=== PATIENT | male | born 1940 | race Caucasian/White ===

== ENCOUNTER 2020-01-11 16:31 | Inpatient (IN) | payer MEDICARE, MEDICAID ==
[~2020-01-11] VITALS: Ht 157.5 cm; Wt 64.3 kg
[2020-01-11] MEDS ORDERED: CIPR-140 PO (16:39)
[2020-01-11] MEDS ORDERED: ACETAMINOPHEN 500 MG TABLET PO ONE (18:30)
[2020-01-11 18:32] LABS: BASOPHILS % (AUTO) 1.3 % (0.0-2.0); EOSINOPHILS % (AUTO) 0.1 % (1.0-6.0); HEMATOCRIT 39.4 % (41-53); HEMOGLOBIN 13.3 g/dL (13.5-17.5); LYMPHOCYTES # (AUTO) 1.5 K/uL (1.0-4.8); LYMPHOCYTES % (AUTO) 28.4 % (22.0-44.0); MEAN CORPUSCULAR HEMOGLOBIN 32.3 pg (26.0-34.0); MEAN CORPUSCULAR HGB CONC 33.8 G/dL (31.0-37.0); MEAN CORPUSCULAR VOLUME 96 fL (80-100); MONOCYTES # (AUTO) 0.6 K/uL (0.1-1.0); MONOCYTES % (AUTO) 12.2 % (2.0-9.0); PLATELET COUNT (AUTO) 132 K/uL (150-450); RED BLOOD CELL COUNT(AUTO) 4.12 MIL/uL (4.50-5.90); RED CELL DISTRIBUTION WIDTH 14.8 % (11.5-14.5)
[2020-01-11] MEDS ORDERED: SODIUM CHLORIDE 0.9% 500 ML IV ONE ×2 (18:45→21:15)
[2020-01-11 18:53] LABS: CALCIUM, TOTAL 8.5 mg/dL (8.8-10.5); CREATININE 2.8 mg/dL (0.60-1.30)
[2020-01-11 18:58] LABS: ALBUMIN 3.6 g/dL (3.4-5.0); BILIRUBIN,TOTAL 0.6 mg/dL (0.1-1.0); TOTAL PROTEIN, SERUM 7.8 g/dL (6.4-8.2)
[2020-01-11 19:52] LABS: APPEARANCE,URINE CLEAR (CLEAR); BILIRUBIN,URINE NEGATIVE (NEGATIVE); GLUCOSE, URINE (UA) 100 mg/dL (NEGATIVE); KETONES,URINE NEGATIVE (NEGATIVE); LEUKOCYTE ESTERASE ,URINE NEGATIVE (NEGATIVE); NITRATE,URINE NEGATIVE (NEGATIVE); OCCULT BLOOD,URINE TRACE (NEGATIVE); PH,URINE 5.5 (5.0-8.0); PROTEIN,URINE SEE CONFIRM (NEGATIVE); UROBILINOGEN,URINE 0.2 mg/dL (<=1.0)
[2020-01-11 20:26] LABS: SULFOSALICYLIC ACID,URINE 3+ (Negative)
[2020-01-11 20:27] LABS: BACTERIA,URINE None Seen /HPF (None Seen); RBC,URINE 0-2 /HPF (0-2); WBC,URINE 0-2 /HPF (0-5)
[2020-01-11 20:28] LABS: SQUAMOUS EPITHELIAL CELL,UR Few /LPF (None Seen)
[2020-01-12] MEDS ORDERED: ZOLPIDEM TARTRATE 5 MG TABLET PO PRN
[2020-01-12] MEDS ORDERED: HYDROCODONE/ACETAMINOPHEN 5-325 MG TABLET PO PRN
[2020-01-12] MEDS ORDERED: ONDANSETRON HCL 4 MG/2 ML VIAL IVP PRN
[2020-01-12] MEDS ORDERED: ALBUTEROL SULFATE 2.5 MG/0.5 ML NEB SOLUTION NEB PRN
[2020-01-12] MEDS ORDERED: MORPHINE SULFATE 2 MG/ML SYRINGE IVP PRN
[2020-01-12] MEDS ORDERED: IPRATROPIUM BROMIDE 0.5 MG/2.5 ML NEB SOLUTION NEB PRN
[2020-01-12] MEDS ORDERED: BISACODYL 10 MG RECTAL RECTAL SUPPOSITORY PR PRN
[2020-01-12 00:56] LABS: INFLUENZA TYPE A NEGATIVE FOR TYPE A (NEGATIVE); INFLUENZA TYPE B NEGATIVE FOR TYPE B (NEGATIVE)
[2020-01-12] MEDS ORDERED: AZITHROMYCIN 500 MG/NS 250 ML IV ONE (01:00)
[2020-01-12] MEDS ORDERED: CefTRIAXone 1 GM/DEXTROSE 50 ML IV ONE (01:00)
[2020-01-12 01:26] LABS: C-REACTIVE PROTEIN QUANT 4.83 mg/dL (0.00-0.30)
[2020-01-12 02:43] VITALS: BP 131/89
[2020-01-12] MEDS: MAGNESIUM HYDROXIDE SUSPENSION 30 ML UDCUP PO PRN ×2 (02:59→20:19)
[2020-01-12 06:23] VITALS: BP 128/73
[2020-01-12] MEDS ORDERED: PNEUMOCOCCAL VACCINE POLYVALENT 0.5 ML VIAL [PPSV23] IM ONE (07:45)
[2020-01-12] MEDS: DOCUSATE SODIUM 100 MG CAPSULE PO SCH ×2 (09:28→20:19)
[2020-01-12] MEDS: HEPARIN SODIUM,PORCINE 5,000 UNITS/ML VIAL SQ SCH ×4 (09:28→23:38)
[2020-01-12 12:00] VITALS: BP 116/70
[2020-01-12] MEDS: SODIUM BICARBONATE 650 MG TABLET PO SCH (12:57)
[2020-01-12] MEDS: SODIUM CHLORIDE 0.9% 1,000 ML IV SCH (12:58)
[2020-01-12 16:00] VITALS: BP 119/72
[2020-01-12 20:00] VITALS: BP 109/69
[2020-01-12] MEDS: ACETAMINOPHEN 325 MG TABLET PO PRN (20:19)
[2020-01-12] MEDS: TAMSULOSIN HCL 0.4 MG CAPSULE PO SCH (20:19)
[2020-01-13] VITALS: BP 104/61
[2020-01-13] MEDS ORDERED: CefTRIAXone 1 GM/DEXTROSE 50 ML IV SCH (01:00)
[2020-01-13] MEDS: ACETAMINOPHEN 325 MG TABLET PO PRN ×2 (01:08→14:37)
[2020-01-13 05:02] VITALS: BP 95/68
[2020-01-13] MEDS: SODIUM CHLORIDE 0.9% 1,000 ML IV SCH (05:22)
[2020-01-13 07:42] LABS: CALCIUM, TOTAL 7.7 mg/dL (8.8-10.5); CREATININE 2.42 mg/dL (0.60-1.30); POTASSIUM 4.1 mmol/L (3.5-5.1)
[2020-01-13 08:00] VITALS: BP 115/68
[2020-01-13] MEDS: HEPARIN SODIUM,PORCINE 5,000 UNITS/ML VIAL SQ SCH ×2 (08:51→16:01)
[2020-01-13] MEDS: DOCUSATE SODIUM 100 MG CAPSULE PO SCH (08:51)
[2020-01-13] MEDS: SODIUM BICARBONATE 650 MG TABLET PO SCH (08:51)
[2020-01-13] MEDS ORDERED: ALBUTEROL SULFATE/IPRATROPIUM 100-20 MCG/SPRAY 4 GM INHALER IH PRN (11:00)
[2020-01-13] MEDS ORDERED: DOCUSATE SODIUM 100 MG CAPSULE PO PRN (11:00)
[2020-01-13 12:00] VITALS: BP 113/60
[2020-01-13] MEDS ORDERED: DOXYCYCLINE HYCLATE 100 MG in DEXTROSE 5%-WATER 100 ML IV SCH (12:00)
[2020-01-13] MEDS ORDERED: HYDROXYCHLOROQUINE SULFATE 200 MG TABLET PO ONE ×2 (13:00→23:00)
[2020-01-13] MEDS ORDERED: AZITHROMYCIN 500 MG TABLET PO ONE (13:00)
[2020-01-13 13:05] LABS: ALBUMIN 3.1 g/dL (3.4-5.0); BILIRUBIN,TOTAL 0.5 mg/dL (0.1-1.0); CALCIUM, TOTAL 8.1 mg/dL (8.8-10.5); CREATININE 2.25 mg/dL (0.60-1.30); POTASSIUM 4.4 mmol/L (3.5-5.1); TOTAL PROTEIN, SERUM 7.3 g/dL (6.4-8.2)
[2020-01-13] MEDS: ALBUTEROL SULFATE/IPRATROPIUM 100-20 MCG/SPRAY 4 GM INHALER IH SCH ×2 (14:38→16:01)
[2020-01-13 16:00] VITALS: BP 105/69
[2020-01-13 20:00] VITALS: BP 133/70
[2020-01-13] MEDS: TAMSULOSIN HCL 0.4 MG CAPSULE PO SCH (21:36)
[2020-01-13] MEDS: ZINC GLUCONATE 50 MG TABLET PO SCH (21:37)
[2020-01-14] MEDS: HEPARIN SODIUM,PORCINE 5,000 UNITS/ML VIAL SQ SCH ×3 (00:11→15:31)
[2020-01-14] MEDS: ALBUTEROL SULFATE/IPRATROPIUM 100-20 MCG/SPRAY 4 GM INHALER IH SCH ×4 (00:12→18:00)
[2020-01-14 00:29] VITALS: BP 106/64
[2020-01-14 04:00] VITALS: BP 110/59
[2020-01-14 05:40] LABS: BASOPHILS % (AUTO) 0.3 % (0.0-2.0); EOSINOPHILS % (AUTO) 0.1 % (1.0-6.0); HEMOGLOBIN 11.7 g/dL (13.5-17.5); LYMPHOCYTES # (AUTO) 1.8 K/uL (1.0-4.8); LYMPHOCYTES % (AUTO) 24.3 % (22.0-44.0); MEAN CORPUSCULAR HGB CONC 33.3 G/dL (31.0-37.0); MEAN CORPUSCULAR VOLUME 96 fL (80-100); MONOCYTES # (AUTO) 0.4 K/uL (0.1-1.0); MONOCYTES % (AUTO) 6.2 % (2.0-9.0); NEUTROPHILS % (AUTO) 69.1 % (40.0-70.0); PLATELET COUNT (AUTO) 165 K/uL (150-450); RED BLOOD CELL COUNT(AUTO) 3.64 MIL/uL (4.50-5.90); RED CELL DISTRIBUTION WIDTH 14.6 % (11.5-14.5)
[2020-01-14 06:06] LABS: D-DIMER 1.49 mg/L FEU (0.00-0.50); PROTHROMBIN TIME 10.7 SEC (9.4-11.6)
[2020-01-14 06:20] LABS: ALBUMIN 2.8 g/dL (3.4-5.0); BILIRUBIN,TOTAL 0.4 mg/dL (0.1-1.0); C-REACTIVE PROTEIN QUANT 8.38 mg/dL (0.00-0.30); CREATININE 2.34 mg/dL (0.60-1.30); POTASSIUM 4.1 mmol/L (3.5-5.1); TOTAL PROTEIN, SERUM 6.6 g/dL (6.4-8.2)
[2020-01-14] MEDS: ZINC GLUCONATE 50 MG TABLET PO SCH ×2 (08:26→21:23)
[2020-01-14] MEDS: HYDROXYCHLOROQUINE SULFATE 200 MG TABLET PO SCH ×2 (08:26→21:23)
[2020-01-14] MEDS: AZITHROMYCIN 250 MG TABLET PO SCH (08:26)
[2020-01-14] MEDS: SODIUM BICARBONATE 650 MG TABLET PO SCH (08:26)
[2020-01-14 08:54] VITALS: BP 116/62
[2020-01-14 11:25] VITALS: BP 112/55
[2020-01-14] MEDS: MAGNESIUM HYDROXIDE SUSPENSION 30 ML UDCUP PO PRN (15:49)
[2020-01-14 16:07] VITALS: BP 110/64
[2020-01-14 20:00] VITALS: BP 99/61
[2020-01-14] MEDS: TAMSULOSIN HCL 0.4 MG CAPSULE PO SCH (21:23)
[2020-01-14] MEDS: ACETAMINOPHEN 325 MG TABLET PO PRN (23:45)
[2020-01-15 00:56] VITALS: BP 117/69
[2020-01-15 04:00] VITALS: BP 109/60
[2020-01-15] MEDS: ALBUTEROL SULFATE/IPRATROPIUM 100-20 MCG/SPRAY 4 GM INHALER IH SCH ×4 (06:22→19:42)
[2020-01-15 07:22] LABS: BASOPHILS % (AUTO) 0.4 % (0.0-2.0); EOSINOPHILS % (AUTO) 0.4 % (1.0-6.0); HEMATOCRIT 32.5 % (41-53); HEMOGLOBIN 10.9 g/dL (13.5-17.5); LYMPHOCYTES # (AUTO) 1.4 K/uL (1.0-4.8); LYMPHOCYTES % (AUTO) 19.8 % (22.0-44.0); MEAN CORPUSCULAR HEMOGLOBIN 32.2 pg (26.0-34.0); MEAN CORPUSCULAR HGB CONC 33.6 G/dL (31.0-37.0); MEAN CORPUSCULAR VOLUME 96 fL (80-100); MONOCYTES # (AUTO) 0.6 K/uL (0.1-1.0); MONOCYTES % (AUTO) 8.2 % (2.0-9.0); NEUTROPHILS # (AUTO) 5.1 K/uL (1.8-7.7); NEUTROPHILS % (AUTO) 71.2 % (40.0-70.0); PLATELET COUNT (AUTO) 169 K/uL (150-450); RED BLOOD CELL COUNT(AUTO) 3.39 MIL/uL (4.50-5.90); RED CELL DISTRIBUTION WIDTH 14.5 % (11.5-14.5)
[2020-01-15 07:34] LABS: ALBUMIN 2.7 g/dL (3.4-5.0); BILIRUBIN,TOTAL 0.6 mg/dL (0.1-1.0); CALCIUM, TOTAL 8.2 mg/dL (8.8-10.5); CREATININE 2.51 mg/dL (0.60-1.30); POTASSIUM 4.1 mmol/L (3.5-5.1); TOTAL PROTEIN, SERUM 6.6 g/dL (6.4-8.2)
[2020-01-15] MEDS: HEPARIN SODIUM,PORCINE 5,000 UNITS/ML VIAL SQ SCH ×4 (08:00→16:00)
[2020-01-15] MEDS: HYDROXYCHLOROQUINE SULFATE 200 MG TABLET PO SCH ×2 (08:20→21:11)
[2020-01-15] MEDS: SODIUM BICARBONATE 650 MG TABLET PO SCH (08:20)
[2020-01-15] MEDS: AZITHROMYCIN 250 MG TABLET PO SCH (08:20)
[2020-01-15] MEDS: ZINC GLUCONATE 50 MG TABLET PO SCH ×2 (08:20→21:11)
[2020-01-15 08:58] VITALS: BP 112/63
[2020-01-15] MEDS ORDERED: SODIUM CHLORIDE 0.9% 1,000 ML IV ONE (11:45)
[2020-01-15 12:00] VITALS: BP 110/80
[2020-01-15 16:00] VITALS: BP 106/56
[2020-01-15 18:13] LABS: APPEARANCE,URINE CLOUDY (CLEAR); BILIRUBIN,URINE NEGATIVE (NEGATIVE); GLUCOSE, URINE (UA) 100 mg/dL (NEGATIVE); KETONES,URINE NEGATIVE (NEGATIVE); LEUKOCYTE ESTERASE ,URINE SMALL (NEGATIVE); NITRATE,URINE NEGATIVE (NEGATIVE); OCCULT BLOOD,URINE LARGE (NEGATIVE); PROTEIN,URINE SEE CONFIRM (NEGATIVE); UROBILINOGEN,URINE 0.2 mg/dL (<=1.0)
[2020-01-15 18:14] LABS: CREATININE,URINE RANDOM 118.4 mg/dL (30.0-125.0); SODIUM,URINE RANDOM 58 mmol/l (20-110)
[2020-01-15 18:22] LABS: SULFOSALICYLIC ACID,URINE 3+ (Negative)
[2020-01-15 18:23] LABS: BACTERIA,URINE Few /HPF (None Seen); RBC,URINE >100 /HPF (0-2)
[2020-01-15 18:24] LABS: SQUAMOUS EPITHELIAL CELL,UR Rare /LPF (None Seen); YEAST,URINE Few /HPF (None Seen)
[2020-01-15 20:00] VITALS: BP 122/68
[2020-01-15] MEDS: TAMSULOSIN HCL 0.4 MG CAPSULE PO SCH (21:11)
[2020-01-15] MEDS: MORPHINE SULFATE 2 MG/ML SYRINGE IVP PRN (21:16)
[2020-01-16] VITALS: BP 117/72
[2020-01-16] MEDS: MORPHINE SULFATE 2 MG/ML SYRINGE IVP PRN (01:14)
[2020-01-16] MEDS: ALBUTEROL SULFATE/IPRATROPIUM 100-20 MCG/SPRAY 4 GM INHALER IH SCH ×4 (02:01→17:57)
[2020-01-16 04:00] VITALS: BP 112/66
[2020-01-16 07:32] LABS: BASOPHILS % (AUTO) 0.4 % (0.0-2.0); EOSINOPHILS % (AUTO) 0.7 % (1.0-6.0); HEMOGLOBIN 10.4 g/dL (13.5-17.5); LYMPHOCYTES # (AUTO) 1.1 K/uL (1.0-4.8); LYMPHOCYTES % (AUTO) 16.7 % (22.0-44.0); MEAN CORPUSCULAR HEMOGLOBIN 32.3 pg (26.0-34.0); MEAN CORPUSCULAR HGB CONC 33.5 G/dL (31.0-37.0); MEAN CORPUSCULAR VOLUME 97 fL (80-100); MONOCYTES # (AUTO) 0.7 K/uL (0.1-1.0); MONOCYTES % (AUTO) 9.8 % (2.0-9.0); NEUTROPHILS # (AUTO) 4.9 K/uL (1.8-7.7); NEUTROPHILS % (AUTO) 72.4 % (40.0-70.0); PLATELET COUNT (AUTO) 175 K/uL (150-450); RED BLOOD CELL COUNT(AUTO) 3.22 MIL/uL (4.50-5.90); RED CELL DISTRIBUTION WIDTH 14.4 % (11.5-14.5)
[2020-01-16 08:00] VITALS: BP 104/68
[2020-01-16 08:20] LABS: ALBUMIN 2.5 g/dL (3.4-5.0); BILIRUBIN,TOTAL 0.4 mg/dL (0.1-1.0); CALCIUM, TOTAL 8.4 mg/dL (8.8-10.5); CREATININE 2.2 mg/dL (0.60-1.30); TOTAL PROTEIN, SERUM 6.4 g/dL (6.4-8.2)
[2020-01-16] MEDS: HEPARIN SODIUM,PORCINE 5,000 UNITS/ML VIAL SQ SCH ×3 (08:53→15:02)
[2020-01-16] MEDS: HYDROXYCHLOROQUINE SULFATE 200 MG TABLET PO SCH ×2 (08:54→20:47)
[2020-01-16] MEDS: ZINC GLUCONATE 50 MG TABLET PO SCH ×2 (08:54→20:47)
[2020-01-16] MEDS: SODIUM BICARBONATE 650 MG TABLET PO SCH ×2 (08:54→13:06)
[2020-01-16] MEDS: AZITHROMYCIN 250 MG TABLET PO SCH (08:54)
[2020-01-16 13:10] VITALS: BP 119/57
[2020-01-16 15:14] VITALS: BP 106/65
[2020-01-16] MEDS: ACETAMINOPHEN 325 MG TABLET PO PRN (15:15)
[2020-01-16] MEDS: TAMSULOSIN HCL 0.4 MG CAPSULE PO SCH (20:47)
[2020-01-16 21:00] VITALS: BP 106/63
[2020-01-17] VITALS: BP 131/73
[2020-01-17] MEDS: ALBUTEROL SULFATE/IPRATROPIUM 100-20 MCG/SPRAY 4 GM INHALER IH SCH ×4 (00:39→21:24)
[2020-01-17 04:00] VITALS: BP 114/68
[2020-01-17] MEDS: ACETAMINOPHEN 325 MG TABLET PO PRN ×2 (04:22→17:00)
[2020-01-17 08:00] VITALS: BP 97/58
[2020-01-17 08:07] LABS: BASOPHILS % (AUTO) 0.6 % (0.0-2.0); EOSINOPHILS % (AUTO) 1.2 % (1.0-6.0); HEMATOCRIT 30.2 % (41-53); HEMOGLOBIN 9.9 g/dL (13.5-17.5); LYMPHOCYTES # (AUTO) 1.1 K/uL (1.0-4.8); LYMPHOCYTES % (AUTO) 18.1 % (22.0-44.0); MEAN CORPUSCULAR HEMOGLOBIN 31.8 pg (26.0-34.0); MEAN CORPUSCULAR HGB CONC 32.9 G/dL (31.0-37.0); MEAN CORPUSCULAR VOLUME 97 fL (80-100); MONOCYTES # (AUTO) 0.8 K/uL (0.1-1.0); MONOCYTES % (AUTO) 13.6 % (2.0-9.0); NEUTROPHILS # (AUTO) 3.9 K/uL (1.8-7.7); NEUTROPHILS % (AUTO) 66.5 % (40.0-70.0); PLATELET COUNT (AUTO) 204 K/uL (150-450); RED BLOOD CELL COUNT(AUTO) 3.13 MIL/uL (4.50-5.90); RED CELL DISTRIBUTION WIDTH 14.8 % (11.5-14.5)
[2020-01-17 08:32] LABS: CALCIUM, TOTAL 8.4 mg/dL (8.8-10.5); CREATININE 2.23 mg/dL (0.60-1.30); MAGNESIUM 1.7 mg/dL (1.80-2.40); PHOSPHORUS 4.2 mg/dL (2.5-4.9)
[2020-01-17] MEDS: HEPARIN SODIUM,PORCINE 5,000 UNITS/ML VIAL SQ SCH ×4 (08:59→23:59)
[2020-01-17] MEDS: HYDROXYCHLOROQUINE SULFATE 200 MG TABLET PO SCH ×2 (08:59→21:24)
[2020-01-17] MEDS: ZINC GLUCONATE 50 MG TABLET PO SCH ×2 (08:59→21:24)
[2020-01-17] MEDS: SODIUM BICARBONATE 650 MG TABLET PO SCH ×2 (08:59→12:46)
[2020-01-17] MEDS ORDERED: MAGNESIUM SULFATE 1 GM in DEXTROSE 5%-WATER 50 ML IV ONE (11:30)
[2020-01-17 12:00] VITALS: BP 110/66
[2020-01-17] MEDS: AZITHROMYCIN 250 MG TABLET PO SCH (12:46)
[2020-01-17] MEDS ORDERED: SODIUM CHLORIDE 0.9% 250 ML IV ONE (12:55)
[2020-01-17] MEDS: SODIUM BICARBONATE 75 MEQ in SODIUM CHLORIDE 0.45% 1,000 ML IV SCH (14:13)
[2020-01-17 16:00] VITALS: BP 117/77
[2020-01-17 20:00] VITALS: BP 113/69
[2020-01-17] MEDS: TAMSULOSIN HCL 0.4 MG CAPSULE PO SCH (21:24)
[2020-01-18] VITALS: BP 112/65
[2020-01-18] MEDS: ALBUTEROL SULFATE/IPRATROPIUM 100-20 MCG/SPRAY 4 GM INHALER IH SCH ×4 (02:15→20:34)
[2020-01-18 04:12] VITALS: BP 116/62
[2020-01-18 08:00] VITALS: BP 110/59
[2020-01-18 08:06] LABS: IGM (IMMUNOFIXATION) 79 mg/dL (15-143)
[2020-01-18] MEDS: ZINC SULFATE 220 MG CAPSULE PO SCH ×2 (08:08→20:34)
[2020-01-18] MEDS: HEPARIN SODIUM,PORCINE 5,000 UNITS/ML VIAL SQ SCH ×3 (08:09→23:56)
[2020-01-18] MEDS: SODIUM BICARBONATE 75 MEQ in SODIUM CHLORIDE 0.45% 1,000 ML IV SCH ×2 (10:16→20:35)
[2020-01-18 10:34] LABS: BASOPHILS % (AUTO) 0.5 % (0.0-2.0); EOSINOPHILS % (AUTO) 1.5 % (1.0-6.0); HEMATOCRIT 31.5 % (41-53); HEMOGLOBIN 10.5 g/dL (13.5-17.5); LYMPHOCYTES # (AUTO) 1.2 K/uL (1.0-4.8); LYMPHOCYTES % (AUTO) 21.7 % (22.0-44.0); MEAN CORPUSCULAR HEMOGLOBIN 32.1 pg (26.0-34.0); MEAN CORPUSCULAR HGB CONC 33.2 G/dL (31.0-37.0); MEAN CORPUSCULAR VOLUME 97 fL (80-100); MONOCYTES # (AUTO) 0.8 K/uL (0.1-1.0); MONOCYTES % (AUTO) 14.6 % (2.0-9.0); NEUTROPHILS # (AUTO) 3.4 K/uL (1.8-7.7); NEUTROPHILS % (AUTO) 61.7 % (40.0-70.0); PLATELET COUNT (AUTO) 259 K/uL (150-450); RED BLOOD CELL COUNT(AUTO) 3.27 MIL/uL (4.50-5.90); RED CELL DISTRIBUTION WIDTH 14.4 % (11.5-14.5)
[2020-01-18 10:59] LABS: CALCIUM, TOTAL 8.7 mg/dL (8.8-10.5); CREATININE 2.14 mg/dL (0.60-1.30); MAGNESIUM 2.1 mg/dL (1.80-2.40); PHOSPHORUS 2.9 mg/dL (2.5-4.9); POTASSIUM 3.9 mmol/L (3.5-5.1)
[2020-01-18] MEDS: SODIUM BICARBONATE 650 MG TABLET PO SCH (16:00)
[2020-01-18 20:17] VITALS: BP 114/66
[2020-01-18] MEDS: TAMSULOSIN HCL 0.4 MG CAPSULE PO SCH (20:34)
[2020-01-19] VITALS: BP 111/64
[2020-01-19] MEDS: ALBUTEROL SULFATE/IPRATROPIUM 100-20 MCG/SPRAY 4 GM INHALER IH SCH ×4 (03:01→21:24)
[2020-01-19 04:00] VITALS: BP 111/64
[2020-01-19 07:25] LABS: BASOPHILS % (AUTO) 1.6 % (0.0-2.0); EOSINOPHILS % (AUTO) 2.1 % (1.0-6.0); HEMATOCRIT 29.6 % (41-53); HEMOGLOBIN 9.8 g/dL (13.5-17.5); LYMPHOCYTES # (AUTO) 1.2 K/uL (1.0-4.8); MEAN CORPUSCULAR HGB CONC 33.3 G/dL (31.0-37.0); MEAN CORPUSCULAR VOLUME 96 fL (80-100); MONOCYTES # (AUTO) 0.9 K/uL (0.1-1.0); MONOCYTES % (AUTO) 15.5 % (2.0-9.0); NEUTROPHILS # (AUTO) 3.3 K/uL (1.8-7.7); NEUTROPHILS % (AUTO) 58.8 % (40.0-70.0); PLATELET COUNT (AUTO) 275 K/uL (150-450); RED BLOOD CELL COUNT(AUTO) 3.07 MIL/uL (4.50-5.90); RED CELL DISTRIBUTION WIDTH 14.4 % (11.5-14.5)
[2020-01-19 07:44] LABS: CALCIUM, TOTAL 8.2 mg/dL (8.8-10.5); CREATININE 2.1 mg/dL (0.60-1.30); POTASSIUM 3.7 mmol/L (3.5-5.1)
[2020-01-19] MEDS: HEPARIN SODIUM,PORCINE 5,000 UNITS/ML VIAL SQ SCH ×2 (08:08→16:05)
[2020-01-19] MEDS: ZINC SULFATE 220 MG CAPSULE PO SCH ×2 (08:09→21:24)
[2020-01-19] MEDS: SODIUM BICARBONATE 650 MG TABLET PO SCH (08:09)
[2020-01-19 12:00] VITALS: BP 96/72
[2020-01-19] MEDS: ACETAMINOPHEN 325 MG TABLET PO PRN (15:35)
[2020-01-19 16:00] VITALS: BP 116/70
[2020-01-19] MEDS: SODIUM BICARBONATE 75 MEQ in SODIUM CHLORIDE 0.45% 1,000 ML IV SCH (17:38)
[2020-01-19 20:00] VITALS: BP 112/67
[2020-01-19] MEDS: TAMSULOSIN HCL 0.4 MG CAPSULE PO SCH (21:24)
[2020-01-20] VITALS: BP 114/62
[2020-01-20] MEDS: HEPARIN SODIUM,PORCINE 5,000 UNITS/ML VIAL SQ SCH ×3 (00:59→17:06)
[2020-01-20] MEDS: SODIUM BICARBONATE 75 MEQ in SODIUM CHLORIDE 0.45% 1,000 ML IV SCH (02:53)
[2020-01-20] MEDS: ALBUTEROL SULFATE/IPRATROPIUM 100-20 MCG/SPRAY 4 GM INHALER IH SCH ×3 (02:53→15:07)
[2020-01-20 04:00] VITALS: BP 108/61
[2020-01-20 06:48] LABS: ALBUMIN URINE (ELP) 25.7 %
[2020-01-20 07:18] LABS: BASOPHILS % (AUTO) 0.8 % (0.0-2.0); EOSINOPHILS % (AUTO) 1.7 % (1.0-6.0); HEMATOCRIT 30.4 % (41-53); HEMOGLOBIN 10.1 g/dL (13.5-17.5); LYMPHOCYTES % (AUTO) 17.4 % (22.0-44.0); MEAN CORPUSCULAR HEMOGLOBIN 31.9 pg (26.0-34.0); MEAN CORPUSCULAR HGB CONC 33.1 G/dL (31.0-37.0); MEAN CORPUSCULAR VOLUME 96 fL (80-100); MONOCYTES # (AUTO) 0.8 K/uL (0.1-1.0); MONOCYTES % (AUTO) 14.8 % (2.0-9.0); NEUTROPHILS # (AUTO) 3.6 K/uL (1.8-7.7); NEUTROPHILS % (AUTO) 65.3 % (40.0-70.0); PLATELET COUNT (AUTO) 285 K/uL (150-450); RED BLOOD CELL COUNT(AUTO) 3.15 MIL/uL (4.50-5.90); RED CELL DISTRIBUTION WIDTH 14.4 % (11.5-14.5)
[2020-01-20 07:34] LABS: CALCIUM, TOTAL 8.2 mg/dL (8.8-10.5); CREATININE 1.95 mg/dL (0.60-1.30); POTASSIUM 3.8 mmol/L (3.5-5.1)
[2020-01-20 08:00] VITALS: BP 115/75
[2020-01-20] MEDS: SODIUM BICARBONATE 650 MG TABLET PO SCH (08:20)
[2020-01-20] MEDS: ZINC SULFATE 220 MG CAPSULE PO SCH (08:20)
[2020-01-20] MEDS ORDERED: TAMS-13 PO (11:58)
[2020-01-20] MEDS ORDERED: TAMSULOSIN HCL 0.4 MG CAPSULE PO SCH (12:00)
[2020-01-20 12:04] VITALS: BP 98/61
== END 2020-01-20 17:28 | disposition home or self-care (01) | DRG 177 ==
LOC: EMS 16:36 → 5N 01-12 01:28
PROVIDERS: ADMIT Hospitalist; ATTEND Hospitalist
DX: U07.1 COVID-19 (principal); J12.89 Other viral pneumonia; N13.30 Unspecified hydronephrosis; N17.9 Acute kidney failure, unspecified; E87.1 Hypo-osmolality and hyponatremia; E87.2 Acidosis; M48.56XA Collapsed vertebra, not elsewhere classified, lumbar region, initial encounter for fracture; N40.0 Benign prostatic hyperplasia without lower urinary tract symptoms; G89.29 Other chronic pain; M54.5 Low back pain; I25.10 Atherosclerotic heart disease of native coronary artery without angina pectoris; D64.9 Anemia, unspecified; E83.42 Hypomagnesemia; N13.9 Obstructive and reflux uropathy, unspecified; N18.9 Chronic kidney disease, unspecified; K59.00 Constipation, unspecified; G58.9 Mononeuropathy, unspecified; Z87.440 Personal history of urinary (tract) infections
CPT/HCPCS: 74176; 76770; 82570; 82728; 82784; 83615; 83735; 84100; 84145; 84156; 84166; 84300; 85379; 85384; 86140; 86160; 86334; 87040; 87086; 87635; 87804; 93005; 93306; 94640; J0456; J0696; J1644; J2270; J3475; J3490; J7030; J7040; J7050; J7060

== ENCOUNTER 2020-01-30 18:14 | Emergency (ER) | payer MEDICARE, MEDICAID ==
[~2020-01-30] VITALS: Ht 160 cm; Wt 58.2 kg
[~2020-01-30 18:14] MED LIST: TAMS-13 PO
[2020-01-30] MEDS ORDERED: FINA-27 PO (18:21)
[2020-01-30 19:30] VITALS: BP 133/83
== END 2020-01-30 21:22 | disposition home or self-care (01) ==
LOC: EMS 18:19
DX: T83.038A Leakage of other urinary catheter, initial encounter (principal); Y84.6 Urinary catheterization as the cause of abnormal reaction of the patient, or of later complication, without mention of misadventure at the time of the procedure; Y73.8 Miscellaneous gastroenterology and urology devices associated with adverse incidents, not elsewhere classified